=== PATIENT | male | born 1965 | race Native Hawaiian/Other Pacific Islander ===

== ENCOUNTER 2024-11-25 12:56 | Emergency (ER) | payer OTHER, SELFPAY ==
[2024-11-25] VITALS (11 sets, daily range): BP systolic 138–173; BP diastolic 89–117; PULSE 70–88; RESP 9–25; TEMP 35.7; O2SAT 97–98; BMI 28.2
[2024-11-25] MEDS: ASPIRIN 81 MG TAB.CHEW 324 MG PO (13:11)
--- NOTE | 2024-11-25 13:12 | CRLHL7_ITS ---
For Patients: As a result of the Century Cures Act, medical imaging exams and procedure reports are released immediately into your electronic medical record. You may view this report before your referring provider. If you have questions, please contact your health care provider. INDICATION: Chest pain. TECHNIQUE: Chest one-view. FINDINGS: The heart is normal in size. The depth of inspiration not optimal. The lungs are clear. The pulmonary vasculature and pleural surfaces appear normal. The bony thorax appears intact. IMPRESSION: Negative study. Dictated by Ronnie Stokes MD @ 11/25/2024 2:16:42 PM (Electronically Signed)
[2024-11-25] MEDS: NITROGLYCERIN 0.4 MG TAB.SUBL SUBLINGUAL (13:15)
--- NOTE | 2024-11-25 13:15 | ED_ITS ---
HPI - General Adult General Date Seen: 11/25/24 Chief complaint: Chest Pain Stated complaint: chest and back pain Time Seen by Provider: 11/25/24 13:04 History of Present Illness HPI narrative: Patient is a 59-year-old who denies any prior medical history. He says when he woke up this morning at 5:00 a.m. or so he had some discomfort in his chest which was brief and went away he went back to sleep and then woke up at around 8:00 a.m. and noted some tightness in his back at that time. This again went away. A couple of hours ago he says he developed tightness in his back again and this has persisted. He now has tightness in his chest and back which is mo derate to severe. He has had some associated nausea but no vomiting. No significant shortness of breath. No history of prior similar symptoms. He denies any medical history, no medications, denies tobacco or alcohol use. He drove himself initially to Urgent Care but says it was packed so he drove himself here. He says his family is all out of town. Related Data Allergies Allergy/AdvReac Type Severity Reaction Status Date / Time No Known Drug Allergies Allergy Verified 11/25/24 13:08 Review of Systems Status of ROS: Reports: 10 or more systems reviewed and unremarkable except as noted in History and below Exam Narrative: Exam Narrative: Vital signs reviewed In general, alert, nontoxic mid age male, he looks somewhat uncomfortable but he is conversant, breathing easily. Head: Normocephalic, atraumatic. Eyes: Sclera clear. Pupils equal and reactive. ENT: Mucous membranes moist. Neck: Supple without adenopathy. Heart: Regular rate and rhythm without murmur. Lungs: Clear. No increased work of breathing, crackles or wheezes. Abdomen: Soft, nontender to palpation. Extremities: Well perfused, pulses intact. No significant edema. Neurologic: Alert, conversant. Speech fluent, face symmetric. Moves all extremities equally. Skin: Warm, dry well perfused. Affect: Normal. Const: Vital Signs, click to edit/add: Vital Signs - 24 hr 11/25/24 13:03 11/25/24 13:11 Temperature 96.2 F L Pulse Rate [Pulse Oximeter] 80 Respiratory Rate 18 Blood Pressure [Le ft Upper Arm] 173/96 H Pulse Oximetry 97 98 Oxygen Delivery Me thod Room Air Course Course ED Course: On arrival he was placed on the monitor, an EKG was done which by my review shows ST-elevation greatest in leads V2 3 and 4, he also has elevation in leads 1 V5 and V6 with some reciprocal depression in leads 3 and AVF. No prior EKGs available for comparison. Cardiology paged at 1:10, page returned 1:17, accepted and air transport arranged 1:22. Sublingual nitro, nitro drip, heparin bolus, ticagrelor, aspirin ordered. Case reviewed with Cardiology as discussed, accepted in transfer as a level 1 STEMI. Portable chest x-ray shows possibly some mild vascular congestion, normal mediastinum. Radiology read pending. Labs all pending. Critical care 30 minutes Labs remain pending at the time of his discharge from the ER aside from point of care troponin which is 0.07. Radiology read remains pending of the chest x-ray. He had 2 mg of IV morphine, nitro drip was initiated, he did not have significant change in his symptoms with that but apparently the tubing was blocked so he was not getting that medication while he was here. Therefore, will let the air medics titrate that as needed EN route. Blood pressure was improved to systolic of 138 with sublingual nitro. Did not have substantial change in his symptoms with sublingual nitro and 2 mg of morphine. Vital Signs Vital signs: Initial Vital Signs Temperature 96.2 F L 11/25/24 13:03 Temperature Source Temporal Artery Scan 11/25/24 13:03 Pulse Rate 80 11/25/24 13:03 Respiratory Rate 18 11/25/24 13:03 Blood Pressure 173/96 H 11/25/24 13:03 Blood Pressure Mean 121 H 11/25/24 13:03 Pulse Oximetry 97 11/25/24 13:03 Oxygen Delivery Method Room Air 11/25/24 13:03 Vital Signs Temperature 96.2 F L 11/25/24 13:03 Pulse Rate 80 11/25/24 13:03 Respiratory Rate 18 11/25/24 13:03 Blood Pressure 173/96 H 11/25/24 13:03 Pulse Oximetry 97 11/25/24 13:03 Oxygen Delivery Method Room Air 11/25/24 13:03 Temperature 96.2 F L 11/25/24 13:03 Pulse Rate 80 11/25/24 13:03 Respiratory Rate 18 11/25/24 13:03 Blood Pressure 173/96 H 11/25/24 13:03 Pulse Oximetry 98 11/25/24 13:11 Oxygen Delivery Method Room Air 11/25/24 13:03 Medications Administered Medications: Generic Name Dose Route Start Last Admin Trade Name Freq PRN Reason Stop Dose Admin Sodium Chloride 1,000 mls @ 1,000 mls/hr 11/25/24 13:15 11/25/24 13:34 0.9 % Sodium Chloride 1000 Ml IV 11/25/24 14:14 1,000 mls/hr .Q1H GEMMA Administration Heparin Sodium/Dextrose 25,000 unit in 500 mls @ 0 mls/hr 11/25/24 13:15 11/25/24 13:31 Heparin IV 1,000 unit/hr .Q0M GEMMA 20 mls/hr Protocol Administration Per Protocol Nitroglycerin/Dextrose 25,000 mcg in 250 mls @ 3 mls/hr 11/25/24 13:13 11/25/24 13:29 Nitroglycerin/Dextrose IVPB 5 mcg/min .TITRATE PRN 3 mls/hr Myocardial infarction Administration Protocol 5 MCG/MIN Ticagrelor 180 mg 11/25/24 13:23 11/25/24 13:27 Ticagrelor 90 Mg Tablet PO 11/25/24 13:24 180 mg ONCE ONE Administration Discontinued Medications Generic Name Dose Route Start Last Admin Trade Name Freq PRN Reason Stop Dose Admin Aspirin 324 mg 11/25/24 13:12 11/25/24 13:11 Aspirin 81 Mg Tab.Chew PO 11/25/24 13:13 324 mg ONCE ONE Administration Heparin Sodium (Porcine) 4,000 unit 11/25/24 13:12 11/25/24 13:20 Heparin 5,000 Unit/0.5 Ml Inj IVP 11/25/24 13:13 4,000 unit ONCE ONE Administration Morphine Sulfate 2 mg 11/25/24 13:13 11/25/24 13:23 Morphine 2 Mg/Ml Inj IVP 11/25/24 13:14 2 mg ONCE ONE Administration Discharge Plan Discharge Clinical Impression: ST elevation myocardial infarction (STEMI) Patient Disposition: [facility] Condition: Stable Stand Alone Forms: MyHealth Info Instructions
[2024-11-25] MEDS: HEPARIN 5,000 UNIT/0.5 ML INJ 4000 UNIT IVP (13:20)
[2024-11-25] MEDS: MORPHINE 2 MG/ML inj IVP (13:23)
[2024-11-25] MEDS: TICAGRELOR 90 MG TABLET 180 MG PO (13:27)
[2024-11-25] MEDS: NITROGLYCERIN/DEXTROSE 25,000 MCG/250 ML BOTTLE 3 MCG IVPB (13:29)
[2024-11-25 13:30] LABS: Basophils Absolute Auto 0.02 K/uL (0.00-0.30); Basophils Percent Auto 0.2 % (0.0-3.0); Eosinophils Absolute Auto 0.05 K/uL (0.00-0.50); Eosinophils Percent Auto 0.5 % (0.0-7.0); Hematocrit 45.5 % (37.0-53.0); Hemoglobin* 15.7 gm/dL (13.5-17.5); Immature Granulocytes Abs Auto 0.04 K/uL (0.00-0.30); Immature Granulocytes Pct Auto 0.4 %; Lymphocytes Absolute Auto 2.17 K/uL (0.90-2.90); Lymphocytes Percent Auto 20.7 % (20-44); Mean Corpuscular HGB Conc 35 gm/dL (32-36); Mean Corpuscular Hemoglobin 32 pg (26-34); Mean Corpuscular Volume 92 fL (80-100); Monocytes Percent Auto 3.6 % (0.0-11.0); Neutrophils Percent Auto 74.6 % (42.0-72.0); Platelet Count* 248 K/uL (140-440); RDW Coefficient of Variation % 12.3 % (11.5-15.5); Red Blood Count 4.96 m/uL (4.30-5.90); White Blood Count* 10.49 K/uL (4.50-11.00)
[2024-11-25] MEDS: HEPARIN 25,000 UNIT/500 ML BAG 20 UNIT IV (13:31)
[2024-11-25] MEDS: 0.9 % SODIUM CHLORIDE 1000 ml 1,000 ML IV (13:34)
[2024-11-25 13:55] LABS: Troponin, Point-of-Care* 0.07 ng/ml (0.01-0.04)
[2024-11-25 13:56] LABS: Chloride* 106 mmol/L (96-114); Potassium* 3.6 mmol/L (3.6-5.1); Sodium* 140 mmol/L (135-149)
[2024-11-25 13:57] LABS: Slide Review Reflex No
[2024-11-25 13:59] LABS: Blood Urea Nitrogen* 18 mg/dL (7-30); Creatinine* 1.3 mg/dL (0.5-1.5); Est. Creatinine Clearance* 55.79; Estimated Glomerular Filt Rate 63 ml/min
[2024-11-25 14:00] LABS: Anion Gap 11 mEq/L (7-15); Calcium* 9.8 mg/dL (8.4-10.6); Carbon Dioxide* 23 mmol/L (20-32); Glucose* 166 mg/dL (60-115)
[2024-11-25 14:09] LABS: NT Pro B Type NatriureticPept* 27 pg/mL (See Note)
[2024-11-25 14:10] LABS: Partial Thromboplastin Time* 27 Seconds (23-33)
[2024-11-25 14:12] LABS: D Dimer Quantitative* 0.33 ug/ml (0.00-0.50)
== END 2024-11-25 13:35 | disposition short-term general hospital (02) ==
LOC: ED 13:39
PROVIDERS: Family Medicine; Emergency Provider Emergency Medicine
DX: I21.3 ST elevation (STEMI) myocardial infarction of unspecified site (principal); R11.0 Nausea
CPT/HCPCS: 36415; 71045; 80048; 83880; 84484; 85025; 85379; 85610; 85730; 93005; 94761; 99284; 99291; A9270; J1644; J2270; J7030

== ENCOUNTER 2025-06-05 14:21 | Outpatient (CLI) | payer OTHER, SELFPAY | END 2025-06-05 14:22 | disposition home or self-care (01) | LOC: AMB 06-11 14:50 | PROVIDERS: Visit Provider Student in an Organized Health Care Education/Training Program | DX: R07.89 Other chest pain (principal) | CPT/HCPCS: A0425; A0427 ==

== ENCOUNTER 2025-06-05 15:01 | Emergency (ER) | payer OTHER, SELFPAY ==
--- OUTSIDE RECORDS SUMMARY | 2025-06-05 15:03 | XMS_ITS | Clinical Summary ---
Author Organization [facility] Address [address] [place] [address] Care Team Providers Care Electric Organ Assembler And Checker Name Role Phone Gavino Sanchez MD Primary Care P maricruzder Allergies No known active allergies Medications MedicationSigDispense QuantityRefillsLast FilledStart DateEnd DateStatus acetaminophen 325 mg tablet Indications:Back pain, unspecified back location, unspecified back pain laterality, unspecified chronicityTake 1-2 Tablets (325-650 mg) by mouth every 4 hours if needed for Pain or Temp>101.5F (38.6C). Max acetaminophen dose: 4000mg in 24 hrs.5Active aspirin chewable 81 mg tablet Indications:STEMI involving left anterior descending coronary artery (HC)Take 1 Tablet (81 mg) by mouth or nasogastric tube once daily.5Active metoprolol succinate 50 mg sustained-release tablet Indications:STEMI involving left anterior descending coronary artery (HC)Take 1 Tablet (50 mg) by mouth once daily. 90 Tablet 11:17 AM CDT5Active nitroglycerin 0.4 mg sublingual tablet Indications:STEMI involving left anterior descending coronary artery (HC)Place 1 Tablet (0.4 mg) under the tongue every 5 minutes if needed for Chest pain 1st choice (Hold if SBP less than 90 mmHg). Up to 3 tablets in 15 minutes. 30 Tablet 11:17 AM CDT5Active rosuvastatin 40 mg tablet Indications:STEMI involving left anterior descending coronary artery (HC)Take 1 Tablet (40 mg) by mouth at bedtime. 90 Tablet 11:17 AM CDT5Active ticagrelor 90 mg tablet Indications:STEMI involving left anterior descending coronary artery (HC)Take 1 Tablet (90 mg) by mouth two times daily. 180 Tablet 11:17 AM CDT5Active valsartan 80 mg tablet Indications:STEMI involving left anterior descending coronary artery (HC)Take 1 Tablet (80 mg) by mouth two times daily. 180 Tablet 11:17 AM CDT5Active Active Problems ProblemNoted DateDiagnosed DateHyperlipidemia LDL goal <55001/03/2025oronary artery disease involving [place] coronary artery of [place] heart without angina krypltzr35/31/2025Primary wygiroppkmxl20/31/2025ST elevation myocardial infarction involving left anterior descending (LAD) coronary cqpolp8711/25/2024 Routine adult health zqhunlzmcmv45/22/2017 Overview (05/27/2017): Colonoscopy 05/2017 normal repeat in 10 years Resolved Problems ProblemNoted DateDiagnosed DateResolved DateHyperlipidemia LDL goal <70 5001/03/2025 Encounters DateTypeDepartmentCare UdiqPtzvswnecxg94/31/2025Nurse Triage [facility] [address] [place] [address] Gavino Sanchez MD Chest Pain06/05/2025Telephone [facility] [address] [place] [address] Gavino Sanchez MD Error-please disregard (error)03/29/2025Telephone [facility] [address] [place] [address] Research, if Research (SSCORE 3-month follow up)03/28/2025Telephone [facility] [address] [place] [address] Research, if Research (SSCORE attempt 3-month follow up)03/27/2025Telephone [facility] [place] [address] [place] [phone] Research, if Research (SSCORE attempt 3-month follow up)03/11/2025 2:[address] [address] [place] [address] Candice Day PA CV General Cardiology Est (2mo f/u Echo states he is bruising a lot easier. No other concerns.)03/11/2025 8:17 AM CDT - 03/11/2025 11:59 PM CDT Hospital Encounter [facility] [address] [place] [address] 03/11/20259382Evfltx74/03/2025 8:27 AM CDT - 03/08/2025 11:59 PM CDTHospital Encounter [facility] [address] [place] [address] 03/08/20255132Dqcvxq04/01/2025 7:00 AM CDT - 03/06/2025 11:59 PM CDTHospital Encounter [facility] [address] [place] [address] 03/06/2025Travelfrom Last 3 Months Immunizations ImmunizationAdministration DatesNext DueAMB Influenza, IIV3 (Age >=3 years)(Flu Clinic Only)03/27/2012,04/16/2011,05/07/2008MB Influenza, IIV4 PF (=>6 mos Flulaval,Fluzone Fluarix)(Flu Clinic Only)03/20/2020,05/04/2019,04/16/2017, 03/20/2016,03/22/2014COVID-19 vaccine (Pfizer-BioNTech 30mcg/0.3mL) 12YO+ BIVALENT PF, MDV12COVID-19 vaccine (Pfizer-BioNTech 30mcg/0.3mL) 12YO+ LAVERNE-SUCROSE PF, MDV2COVID-19 vaccine (ubigrate 30mcg/0.3mL) PF, MDV11/29/2020,11/08/2020Influenza, CCIIV3 (Age >=6 MO) (Egg Free)05/04/2024 Influenza, IIV3 (Age 6-35 mos)04/16/2011,05/14/2009Influenza, IIV3 (Age >=3 years)04/09/2013,03/27/2012,05/14/2009,05/07/2008,04/05/2007,05/09/2006 Influenza, QHD90706/28/2021,02/05/2021,03/20/2016,03/26/2015,03/22/2014 Influenza,CCIIV4 PRESERV FREE05/13/2023Tdap107/03/2015Zoster (Zostavax-ZVL, live) 05/03/2016 Social History Tobacco UseTypesPacks/DayYears UsedDateSmoking Tobacco: NeverSmokeless Tobacco: Never Tobacco Cessation:Counseling Given: Yes Alcohol UseStandard Drinks/WeekCommentsNo0 (1 standard drink = 0.6 oz pure alcohol)PHQ-2AnswerDate RecordedPHQ-2 TOTAL [id number] Connections AnswerDate RecordedDo you often feel lonely or isolated from those around you?0 11/29/2024Financial Resource StrainAnswerDate RecordedDifficulty of Paying Living Odgvoanb670/26/2025Difficulty of Paying Living ExpensesNot on file 11/29/2024Food InsecurityAnswerDate RecordedDo you worry your food will run out before you are able to buy more?Transportation NeedsAnswerDate RecordedDoes lack of transportation keep you from medical appointments?1 11/29/2024Does lack of transportation keep you from work, meetings or getting things that you need?Housing StabilityAnswerDate RecordedWhat is your housing situation today?Interpersonal SafetyAnswerDate RecordedAre you being hit, kicked, pushed or yelled at (see row info)?No11/26/2024 Interpersonal Safety Abuse 12 - 18Not on file11/26/2024Interpersonal Safety Ambulatory VulnerabilityNot on file11/26/2024UtilitiesAnswerDate RecordedDo you have trouble paying for utilities (for example, heat, electricity, water, phone)?Sex and Gender InformationValueDate RecordedSex Assigned at BirthNot on fileLegal IitWihh4806/19/2012 6:33 AM CSTGender IdentityNot on file Sexual OrientationNot on file Last Filed Vital Signs Vital SignReadingTime TakenCommentsBlood Kjkrxrqu646/7003/11/2025 2:18 PM CDT Hclep334103/11/2025 2:18 PM DSJNgwsipnxmat44.3 ??C (99.1 ??F)11/27/2024 8:17 AM CDTRespiratory Sdeg475612/13/2024 1:00 PM CDTOxygen Tcuixhcenx138%03/11/2025 2:18 PM CDTInhaled Oxygen Concentration--Zcjqhf91.7 kg (184 lb 9.6 oz)03/11/2025 2:18 PM OAPLpomkj557.2 cm (5' 7.01)03/11/2025 2:18 PM CDTBody Mass Index28.91 03/11/2025 2:18 PM CDT Plan of Treatment Health MaintenanceDue DateLast DoneCommentsHIV for age 15-6504/29/1978Hepatitis C screening for age 18-7904/29/1981Pneumococcal series for age 50+ (1 of 2 - PCV)1982RSV vaccine for adults or (1 - Risk 50-74 years 1-dose series)2013Zoster (shingles) series for age 50+ (2 of 3)06/28/2016 05/03/2016COVID-19 vaccine series ( - 2024- season), 07/27/2021, 11/29/2020, Additional history existsInfluenza Vaccine (#1) , 05/13/2023, 04/28/2022, Additional history existsBMI (ht and wt on same day) for age 18+, 01/18/2025, 01/03/2025, Additional history existsDepression screening for age 12+, 10/07/2020, 08/29/2018, Additional history existsTetanus gnvtoln7805/03/2026 05/03/2016Colonoscopy through age 75, 05/27/2017, 05/27/2017 Lipids for age 45-750, 11/26/2024Hepatitis B series for 19+ Aged OutNo longer eligible based on patient's age to complete this topic Procedures Procedure NamePriorityDate/TimeAssociated DiagnosisCommentsSCAN-CARDIAC CXHVDWYXUMLUBJ62/06/2025 8:21 AM CDTSCAN-CARDIAC RXVMSFYWCLWHEK64/03/2025 8:18 AM CDTSCAN-CARDIAC LOCKMYAEXMJNOM88/01/2025 8:20 AM CDTLIPID PANEL W REFLEX MEASURED VXENgxzwac29/26/2025 2:[address] elevation myocardial infarction involving left anterior descending (LAD) coronary artery (HC) Hyperlipidemia LDL goal <55 Coronary artery disease involving [place] coronary artery of [place] heart without angina pectoris Primary hypertension VVPZFPWUGCA78/22/2017 11:12 AM 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 Narrative Authorizing ProviderResult TypeResult StatusScannerOTHERFinal Result * LIPID PANEL W REFLEX MEASURED LDL (03/01/2025 2:38 PM CDT)ComponentValueRef RangeTest MethodAnalysis TimePerformed AtPathologist SignatureCHOLESTEROL, TOTAL98<200 mg/dL03/02/2025 4:15 AM CDTQUEST NXKLCEHVMRCIKHMNTNHNNKSQ239<150 mg/dL03/02/2025 4:15 AM CDTQUEST DIAGNOSTICSHDL CXHZQFQFPSX42> OR = 40 mg/dL 03/02/2025 4:15 AM CDTQUEST DIAGNOSTICSNON HDL EYPTDRHHFNW21<130 mg/dL (calc) 03/02/2025 4:15 AM CDTQUEST DIAGNOSTICSComment: For patients with diabetes plus 1 major ASCVD risk factor, treating to a non-HDL-C goal of <100 mg/dL (LDL-C of <70 mg/dL) is considered a therapeutic option. CHOL/HDLC RATIO2.2<5.0 (calc)03/02/2025 4:15 AM CDTQUEST DIAGNOSTICS LDL-LVHULABEGBC58qc/dL (calc)03/02/2025 4:15 AM CDTQUEST DIAGNOSTICSComment: Reference range: <100 Desirable range <100 mg/dL for primary prevention; <70 mg/dL for patients with CHD or diabetic patients with > or = 2 CHD risk factors. LDL-C is now calculated using the Albina calculation, which is a validated novel method providing better accuracy than the Friedewald equation in the estimation of LDL-C. Issac EDWARDS et al. CELENA. 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)Specimen (Source)Anatomical Location / LateralityCollection Method / VolumeCollection TimeReceived Time05/27/2017 11:12 AM TEXTILE SLITTING MACHINE OPERATOR Narrative Transcriptions Issac Abarca MD - 05/27/2017 12:17 PM CST Patient Name: Alfredo Steve Procedure Date: 05/27/2017 Gender: Male Date of : 1965 Admit Type: Outpatient Procedure: Colonoscopy Proceduralist: Issac Abarca MD , Rosalba Adler (Nurse) Indications/Pre-Op Diagnosis: Screening for colorectal malignant neoplasm, This is the patient's first colonoscopy Medications: Fentanyl 100 micrograms IV, Midazolam 4 mgIV, The level of sedation administered wasmoderate Procedure Description: The patient had risks, benefits and alternatives explained to andgave informed consent. The patient had a stable cardiopulmonary status and judged an adequate candidate for conscious sedation. The PCF-[id number] [id number] was passed through the anus and advanced tothe cecum, identified by appendiceal orifice and ileocecal valve. The colonoscopy was performed without difficulty. The patient toleratedthe procedure well. The quality of the bowel preparation was good. The ileocecal valve, appendiceal orifice, and rectum were photographed. Complications: No immediate complications. Estimated Blood Loss & Specimen: Estimated blood loss: none. Specimen collected - None Findings: The perianal and digital rectal examinations were normal. The entire examined colon appeared normal on direct and retroflexion views. Impressions/Post-Op Diagnosis: - The entire examined colon is normal on direct and retroflexionviews. - No specimens collected. Recommendation: - Patient has a contact number available for emergencies. The signsand symptoms of potential delayed complications were discussed with the patient. Return to normal activities tomorrow. Written discharge instructions were provided to the patient. - Resume previous diet. - Continue present medications. - Repeat colonoscopy in 10 years for screening purposes. Moderate Sedation: Moderate (conscious) sedation was administered by the endoscopy nurse and supervised by the endoscopist. The following parameters were monitored: oxygen saturation, heart rate, respiratory rate, blood pressure, adequacy of pulmonary ventilation and reponse to care. Please refer to the patien'ts medical record flowsheets and nursing notes for moderate sedation details. Total physician intraservice time was 15 minutes. Issac Abarca MD 05/27/2017 12:17:28 PM This report has been signed electronically. Note Initiated On: 05/27/2017 11:12 AM Procedure Code(s): --- Professional --- 52662, Colonoscopy, flexible; diagnostic, including collection of specimen(s) bybrushing or washing, when performed (separateprocedure) Diagnosis Code(s): --- Professional --- Z12.11, Encounter for screening formalignant neoplasm of colon CPT copyright 2016 [employer]. All rights reserved. The codes documented in this report are preliminary and upon communication coordinator reviewmay be revised to meet current compliance requirements. Scope In: 11:53:59 AM Scope Withdrawal Time 0 hours 8 minutes 52 seconds Scope Out: 12:06:31 PM Authorizing ProviderResult TypeResult StatusMarjina Abarca MDPROCEDURE ORD Final Result from Last 3 Months or Most Recently Relevant to Health Maintenance Insurance Advance Directives * Full Code (Latest Code Status on File) Date ActivatedDate InactivatedComments11/25/2024 3:36 PM11/27/2024 2:25 PMQuestion AnswerCommentsCode Status Discussion:* Unable to Assess Preferences, Provider to review later Care Teams Team MemberRelationshipSpecialtyStart DateEnd Date Gavino Sanchez MD [address] [place] [address] PCP - GeneralFamily Practice11/29/24
[2025-06-05 15:17] VITALS: BP 139/76; PULSE 67; RESP 16; TEMP 37.1; O2SAT 99; BMI 27.4
--- NOTE | 2025-06-05 15:24 | CRLHL7_ITS ---
For Patients: As a result of the Century Cures Act, medical imaging exams and procedure reports are released immediately into your electronic medical record. You may view this report before your referring provider. If you have questions, please contact your health care provider. Indication: Chest pain Technique: Chest 2 views Comparison: Chest x-ray 11/25/2024 Findings/Impression: Cardiovascular and mediastinum: Heart size and vasculature are normal in caliber and appearance. Mediastinum is within normal limits. Lungs and pleural spaces: Lungs are clear. No sign of infiltrate or mass. No sign of pleural effusion. No pneumothorax. Bones and soft tissues: No significant findings. Dictated by Bradly Villagran MD @ 06/05/2025 4:52:01 PM (Electronically Signed)
--- NOTE | 2025-06-05 15:32 | ED.CHESTPAIN ---
HPI - Chest Pain General Date Seen: 06/05/25 <Edison Oswald DO - Last Filed: 06/08/25 11:44> Chief Complaint: Chest Pain <Edison Oswald DO - Last Filed: 06/08/25 11:44> Stated Complaint: Chest pain <Edison Oswald DO - Last Filed: 06/08/25 11:44> Time Seen by Provider: 06/05/25 15:04 <Edison Oswald DO - Last Filed: 06/08/25 11:44> Source: patient <Edison Oswald DO - Last Filed: 06/08/25 11:44> Mode of arrival: EMS <Edison Oswald DO - Last Filed: 06/08/25 11:44> Limitations: no limitations <Edison Oswald DO - Last Filed: 06/08/25 11:44> History of Present Illness HPI narrative: Patient is 60-year-old male with a history of coronary artery disease the previous stent placed in November of 2024 presenting to the emergency department for chest pain. He states he 1st had some chest pain last night around 20:00. State it felt like a sharp sensation in his mid chest region. He went to bed without issue. Woke up and was not having much symptoms. Was shoveling snow today and said he was doing well. He states after officially is no went in the house they went downstairs to clean. While he was cleaning he started having some chest pain again. This chest pain was more in the lower sternal region. It did not radiate anywhere. Pain was not improving so he went to go taking Nitrol he states that resolved pain almost immediately. He now states he is a vague pressure sensation in the same area that does not radiate. He states previously when he has heart attack he was having severe chest and back pain along with diaphoresis. He states this felt nothing like that. Is not having any associated shortness of breath. Denies any recent illnesses. Denies fevers, chills, headache, lightheadedness, dizziness, weakness, numbness, abdominal pain. No other concerns noted at this time. States he is already taking 4 baby aspirin. <Edison Oswald - Last Filed: 06/08/25 11:44> Related Data Home Medications: Home Medications ?Medication ?Instructions ?Recorded ?Confirmed aspirin 81 mg capsule 81 mg PO DAILY 06/05/25 06/05/25 metoprolol succinate 50 mg 50 mg PO DAILY 06/05/25 06/05/25 tablet,extended release 24 hr rosuvastatin 40 mg tablet 40 mg PO QPM 06/05/25 06/05/25 ticagrelor 90 mg tablet 90 mg PO BID 06/05/25 06/05/25 valsartan 80 mg tablet 80 mg PO BID 06/05/25 06/05/25 <Edison Oswald DO - Last Filed: 06/08/25 11:44> Allergies/Adverse Reactions: Allergies Allergy/AdvReac Type Severity Reaction Status Date / Time No Known Drug Allergies Allergy Verified 06/05/25 15:22 <Edison Oswald DO - Last Filed: 06/08/25 11:44> Review of Systems Status of ROS Reports: 10 or more systems reviewed and unremarkable except as noted in History and below <Edison Oswald DO - Last Filed: 06/08/25 11:44> [facility] Social History: Social History Smoking Status: Never smoker Do you use any of these nicotine containing products: None How often do you have a drink containing alcohol: never AUDIT-C Alcohol total score: 0 Non-prescribed substance use: denies use <Edison Oswald DO - Last Filed: 06/08/25 11:44> Exam Narrative Exam Narrative: Const: Well-nourished, Well-developed, in mild distress Eyes: PERRL, no conjunctival injection, and symmetrical lids HENT: Atraumatic external nose and ears. Moist mucous membranes. Neck: Symmetric, trachea midline, No thyromegaly. CVS: RRR, No murmurs or gallops. Peripheral pulses 2+ and equal in all extremities RESP: Unlabored respiratory effort. Clear to auscultation bilaterally. GI: Nontender/Nondistended, No rebound or guarding. MSK:Extremities w/o deformity, Normal Active ROM Skin: Warm, Dry. No rashes or lesions. Neuro: Normal Muscle tone, No focal neurological deficits. Psych: Awake, Alert, & Oriented x3. Appropriate mood and affect. <Edison Oswald DO - Last Filed: 06/08/25 11:44> Const Vital Signs, click to edit/add: Vital Signs - 24 hr 06/05/25 15:17 06/05/25 17:45 Temperature 98.8 F 98.7 F Pulse Rate [Pulse Oximeter] 67 61 Respiratory Rate 16 18 Blood Pressure [Right Upper Arm] 139/76 111/70 Pulse Oximetry 99 98 Oxygen Delivery Method Room Air Room Air <Edison Oswald DO - Last Filed: 06/08/25 11:44> Vital Signs - 24 hr 06/05/25 15:17 06/05/25 17:45 Temperature 98.8 F 98.7 F Pulse Rate [Pulse Oximeter] 67 61 Respiratory Rate 16 18 Blood Pressure [Right Upper Arm] 139/76 111/70 Pulse Oximetry 99 98 Oxygen Delivery Method Room Air Room Air <Marcel Wong MD - Last Filed: 06/05/25 18:15> Course Vital Signs Vital signs: Initial Vital Signs Temperature 98.8 F 06/05/25 15:17 Temperature Source Temporal Artery Scan 06/05/25 15:17 Pulse Rate 67 06/05/25 15:17 Pulse Rhythm Regular 06/05/25 15:17 Pulse Strength 3+ Normal 06/05/25 15:17 Respiratory Rate 16 06/05/25 15:17 Blood Pressure 139/76 06/05/25 15:17 Blood Pressure Mean 97 06/05/25 15:17 Blood Pressure Position Sitting 06/05/25 15:17 Pulse Oximetry 99 06/05/25 15:17 Oxygen Delivery Method Room Air 06/05/25 15:17 Vital Signs Temperature 98.8 F 06/05/25 15:17 Pulse Rate 67 06/05/25 15:17 Respiratory Rate 16 06/05/25 15:17 Blood Pressure 139/76 06/05/25 15:17 Pulse Oximetry 99 06/05/25 15:17 Oxygen Delivery Method Room Air 06/05/25 15:17 Temperature 98.7 F 06/05/25 17:45 Pulse Rate 61 06/05/25 17:45 Respiratory Rate 18 06/05/25 17:45 Blood Pressure 111/70 06/05/25 17:45 Pulse Oximetry 98 06/05/25 17:45 Oxygen Delivery Method Room Air 06/05/25 17:45 <Edison Oswald DO - Last Filed: 06/08/25 11:44> Initial Vital Signs Temperature 98.8 F 06/05/25 15:17 Temperature Source Temporal Artery Scan 06/05/25 15:17 Pulse Rate 67 06/05/25 15:17 Pulse Rhythm Regular 06/05/25 15:17 Pulse Strength 3+ Normal 06/05/25 15:17 Respiratory Rate 16 06/05/25 15:17 Blood Pressure 139/76 06/05/25 15:17 Blood Pressure Mean 97 06/05/25 15:17 Blood Pressure Position Sitting 06/05/25 15:17 Pulse Oximetry 99 06/05/25 15:17 Oxygen Delivery Method Room Air 06/05/25 15:17 Vital Signs Temperature 98.8 F 06/05/25 15:17 Pulse Rate 67 06/05/25 15:17 Respiratory Rate 16 06/05/25 15:17 Blood Pressure 139/76 06/05/25 15:17 Pulse Oximetry 99 06/05/25 15:17 Oxygen Delivery Method Room Air 06/05/25 15:17 Temperature 98.7 F 06/05/25 17:45 Pulse Rate 61 06/05/25 17:45 Respiratory Rate 18 06/05/25 17:45 Blood Pressure 111/70 06/05/25 17:45 Pulse Oximetry 98 06/05/25 17:45 Oxygen Delivery Method Room Air 06/05/25 17:45 <Marcel Wong MD - Last Filed: 06/05/25 18:15> MDM - Chest Pain MDM Narrative Medical decision making narrative: Patient is a 60-year-old male presenting for chest pain. The differential diagnosis of chest pain is broad and includes common etiologies such as musculoskeletal strain, GERD, pneumonia, etc. More serious etiologies considered include PE, coronary artery disease, pneumothorax, aortic dissection, aortic aneurysm. Will do EKG and troponins to look for signs of coronary artery or other cardiac abnormalities. Will do D-dimer to look for signs of a blood clot. Chest x-ray ordered for for signs of pneumonia pneumothorax. Is otherwise stable my concern for dissection or ruptured aortic aneurysm is low. Pain is not reproducible on palpation and this does not seem to be musculoskeletal in nature. The symptoms are improving after the nitro does raise my suspicion for coronary artery disease although could also be an esophageal spasm. Lab work returned showing no concerning abnormalities. D-dimer still pending. Viral swabs are also still pending. Initial troponin shows no concerning abnormalities. Will repeat troponin. EKG interpreted by myself shows no concerning findings. Patient will be signed out to my colleague. Expected disposition is discharge at this time <Eidson Oswald DO - Last Filed: 06/08/25 11:44> Patient is a 60-year-old male presenting for chest pain. The differential diagnosis of chest pain is broad and includes common etiologies such as musculoskeletal strain, GERD, pneumonia, etc. More serious etiologies considered include PE, coronary artery disease, pneumothorax, aortic dissection, aortic aneurysm. Will do EKG and troponins to look for signs of coronary artery or other cardiac abnormalities. Will do D-dimer to look for signs of a blood clot. Chest x-ray ordered for for signs of pneumonia pneumothorax. Is otherwise stable my concern for dissection or ruptured aortic aneurysm is low. Pain is not reproducible on palpation and this does not seem to be musculoskeletal in nature. The symptoms are improving after the nitro does raise my suspicion for coronary artery disease although could also be an esophageal spasm. Lab work returned showing no concerning abnormalities. D-dimer still pending. Viral swabs are also still pending. Initial troponin shows no concerning abnormalities. Will repeat troponin. EKG interpreted by myself shows no concerning findings. Patient will be signed out to my colleague. Expected disposition is discharge at this time Repeat troponin along with chest x-ray and D-dimer all returned with reassuring results. I did visit the patient and discuss these results. He may be having some atypical chest pain unrelated to his heart as he states that this pain was quite different than what he had last summer when he needed an angiogram. He tells me that there was 1 artery that was 50% occluded and they did not place a stent in this artery. He may be having some exertional angina. The patient is taking appropriate medications including beta-tana and cholesterol meds. He is okay to be discharged home. I advised him to follow-up with his clinical counselor and if symptoms are recurrent he should return for re-evaluation. <Marcel Wong MD - Last Filed: 06/05/25 18:15> Lab Data Labs: Lab Results 06/05/25 06/05/25 06/05/25 Range/Units 15:24 15:33 15:37 WBC 5.48 (4.50-11.00) K/uL RBC 4.47 (4.30-5.90) m/uL Hgb 13.6 (13.5-17.5) gm/dL Hct 40.7 (37.0-53.0) % MCV 91 (80-100) fL MCH 30 (26-34) pg MCHC 33 (32-36) gm/dL RDW Coeff of Lacey 12.4 (11.5-15.5) % Plt Count 225 (140-440) K/uL Neut % (Auto) 64.5 (42.0-72.0) % Lymph % (Auto) 26.1 (20-44) % Clare % (Auto) 6.6 (0.0-11.0) % Eos % (Auto) 1.6 (0.0-7.0) % Baso % (Auto) 0.7 (0.0-3.0) % Neut # (Auto) 3.53 (1.7-7.0) K/uL Lymph # (Auto) 1.43 (0.90-2.90) K/uL Clare # (Auto) 0.40 (0.00-0.90) K/UL Eos # (Auto) 0.09 (0.00-0.50) K/uL Baso # (Auto) 0.04 (0.00-0.30) K/uL Abs Immat Gran (auto) 0.03 (0.00-0.30) K/uL Imm/Tot Granulo (auto) 0.5 % D-Dimer Quant (PE/DVT) 0.30 (0.00-0.50) ug/ml Sodium 134 L (135-149) mmol/L Potassium 4.3 (3.6-5.1) mmol/L Chloride 104 (96-114) mmol/L Carbon Dioxide 24 (20-32) mmol/L Anion Gap 6 L (7-15) mEq/L BUN 16 (7-30) mg/dL Creatinine 1.1 (0.5-1.5) mg/dL Estimated Creat Clear 65.10 Estimated GFR 76 ml/min Glucose 104 (60-115) mg/dL Calcium 9.5 (8.4-10.6) mg/dL Magnesium 2.1 (1.5-2.6) mg/dL POC Troponin I High Sensi 15.5 (2.9-28.0) pg/mL SARS-CoV-2 (PCR) Negative SARS-CoV-2 (Negative) Influenza Type A (PCR) Negative PCR FLU A (Negative) Influenza Type B (PCR) Negative PCR FLU B (Negative) RSV (PCR) Negative PCR RSV (Negative) 06/05/25 Range/Units 17:25 WBC (4.50-11.00) K/uL RBC (4.30-5.90) m/uL Hgb (13.5-17.5) gm/dL Hct (37.0-53.0) % MCV (80-100) fL MCH (26-34) pg MCHC (32-36) gm/dL RDW Coeff of Lacey (11.5-15.5) % Plt Count (140-440) K/uL Neut % (Auto) (42.0-72.0) % Lymph % (Auto) (20-44) % Clare % (Auto) (0.0-11.0) % Eos % (Auto) (0.0-7.0) % Baso % (Auto) (0.0-3.0) % Neut # (Auto) (1.7-7.0) K/uL Lymph # (Auto) (0.90-2.90) K/uL Clare # (Auto) (0.00-0.90) K/UL Eos # (Auto) (0.00-0.50) K/uL Baso # (Auto) (0.00-0.30) K/uL Abs Immat Gran (auto) (0.00-0.30) K/uL Imm/Tot Granulo (auto) % D-Dimer Quant (PE/DVT) (0.00-0.50) ug/ml Sodium (135-149) mmol/L Potassium (3.6-5.1) mmol/L Chloride (96-114) mmol/L Carbon Dioxide (20-32) mmol/L Anion Gap (7-15) mEq/L BUN (7-30) mg/dL Creatinine (0.5-1.5) mg/dL Estimated Creat Clear Estimated GFR ml/min Glucose (60-115) mg/dL Calcium (8.4-10.6) mg/dL Magnesium (1.5-2.6) mg/dL POC Troponin I High Sensi 16.2 (2.9-28.0) pg/mL SARS-CoV-2 (PCR) (Negative) Influenza Type A (PCR) (Negative) Influenza Type B (PCR) (Negative) RSV (PCR) (Negative) <Edison Oswald, DO - Last Filed: 06/08/25 11:44> Lab Results 06/05/25 06/05/25 06/05/25 Range/Units 15:24 15:33 15:37 WBC 5.48 (4.50-11.00) K/uL RBC 4.47 (4.30-5.90) m/uL Hgb 13.6 (13.5-17.5) gm/dL Hct 40.7 (37.0-53.0) % MCV 91 (80-100) fL MCH 30 (26-34) pg MCHC 33 (32-36) gm/dL RDW Coeff of Lacey 12.4 (11.5-15.5) % Plt Count 225 (140-440) K/uL Neut % (Auto) 64.5 (42.0-72.0) % Lymph % (Auto) 26.1 (20-44) % Clare % (Auto) 6.6 (0.0-11.0) % Eos % (Auto) 1.6 (0.0-7.0) % Baso % (Auto) 0.7 (0.0-3.0) % Neut # (Auto) 3.53 (1.7-7.0) K/uL Lymph # (Auto) 1.43 (0.90-2.90) K/uL Clare # (Auto) 0.40 (0.00-0.90) K/UL Eos # (Auto) 0.09 (0.00-0.50) K/uL Baso # (Auto) 0.04 (0.00-0.30) K/uL Abs Immat Gran (auto) 0.03 (0.00-0.30) K/uL Imm/Tot Granulo (auto) 0.5 % D-Dimer Quant (PE/DVT) 0.30 (0.00-0.50) ug/ml Sodium 134 L (135-149) mmol/L Potassium 4.3 (3.6-5.1) mmol/L Chloride 104 (96-114) mmol/L Carbon Dioxide 24 (20-32) mmol/L Anion Gap 6 L (7-15) mEq/L BUN 16 (7-30) mg/dL Creatinine 1.1 (0.5-1.5) mg/dL Estimated Creat Clear 65.10 Estimated GFR 76 ml/min Glucose 104 (60-115) mg/dL Calcium 9.5 (8.4-10.6) mg/dL Magnesium 2.1 (1.5-2.6) mg/dL POC Troponin I High Sensi 15.5 (2.9-28.0) pg/mL SARS-CoV-2 (PCR) Negative SARS-CoV-2 (Negative) Influenza Type A (PCR) Negative PCR FLU A (Negative) Influenza Type B (PCR) Negative PCR FLU B (Negative) RSV (PCR) Negative PCR RSV (Negative) 06/05/25 Range/Units 17:25 WBC (4.50-11.00) K/uL RBC (4.30-5.90) m/uL Hgb (13.5-17.5) gm/dL Hct (37.0-53.0) % MCV (80-100) fL MCH (26-34) pg MCHC (32-36) gm/dL RDW Coeff of Lacey (11.5-15.5) % Plt Count (140-440) K/uL Neut % (Auto) (42.0-72.0) % Lymph % (Auto) (20-44) % Clare % (Auto) (0.0-11.0) % Eos % (Auto) (0.0-7.0) % Baso % (Auto) (0.0-3.0) % Neut # (Auto) (1.7-7.0) K/uL Lymph # (Auto) (0.90-2.90) K/uL Clare # (Auto) (0.00-0.90) K/UL Eos # (Auto) (0.00-0.50) K/uL Baso # (Auto) (0.00-0.30) K/uL Abs Immat Gran (auto) (0.00-0.30) K/uL Imm/Tot Granulo (auto) % D-Dimer Quant (PE/DVT) (0.00-0.50) ug/ml Sodium (135-149) mmol/L Potassium (3.6-5.1) mmol/L Chloride (96-114) mmol/L Carbon Dioxide (20-32) mmol/L Anion Gap (7-15) mEq/L BUN (7-30) mg/dL Creatinine (0.5-1.5) mg/dL Estimated Creat Clear Estimated GFR ml/min Glucose (60-115) mg/dL Calcium (8.4-10.6) mg/dL Magnesium (1.5-2.6) mg/dL POC Troponin I High Sensi 16.2 (2.9-28.0) pg/mL SARS-CoV-2 (PCR) (Negative) Influenza Type A (PCR) (Negative) Influenza Type B (PCR) (Negative) RSV (PCR) (Negative) <Marcel Wong MD - Last Filed: 06/05/25 18:15> Imaging Data Chest x-ray: Radiologist's impression: Cardiovascular and mediastinum: Heart size and vasculature are normal in caliber and appearance. Mediastinum is within normal limits. Lungs and pleural spaces: Lungs are clear. No sign of infiltrate or mass. No sign of pleural effusion. No pneumothorax. Bones and soft tissues: No significant findings. <Marcel Wong MD - Last Filed: 06/05/25 18:15> ECG Data Attestation: I personally reviewed and interpreted this ECG as follows: <Edison Oswald DO - Last Filed: 06/08/25 11:44> Prior ECG tracings: available for review <Edison Oswald DO - Last Filed: 06/08/25 11:44> Interpretation: Normal sinus rhythm with a rate of 65 beats per minute, normal intervals, normal axis, no ST or T-wave abnormalities. Only EKG to compare to is a previous EKG that shows a STEMI <Edison Oswald DO - Last Filed: 06/08/25 11:44> Discharge Plan Discharge Clinical Impression: Atypical chest pain <Edison Oswald DO - Last Filed: 06/08/25 11:44> Patient Disposition: Home, Self-Care <Edison Oswald DO - Last Filed: 06/08/25 11:44> Condition: Improved <Edison Oswald DO - Last Filed: 06/08/25 11:44> Additional Instructions: Continue current plans. Activity as tolerated. Follow-up with cardiology clinic for ongoing evaluation and management. Return if symptoms are recurrent or worsening. <Edison Oswald DO - Last Filed: 06/08/25 11:44> Prescriptions: No Action metoprolol succinate 50 mg tablet extended release 24 hr 50 mg PO DAILY valsartan 80 mg tablet 80 mg PO BID rosuvastatin 40 mg tablet 40 mg PO QPM ticagrelor 90 mg tablet 90 mg PO BID aspirin 81 mg capsule 81 mg PO DAILY <DO Destin Santacruz Last Filed: 06/08/25 11:44> Follow Up/Referrals: Provider,Not a Local [Primary Care Provider, Family Practice] <DO Destin Santacruz Last Filed: 06/08/25 11:44> Stand Alone Forms: [facility] Info Instructions <DO Destin Santacruz Last Filed: 06/08/25 11:44>
[2025-06-05 15:52] LABS: Hematocrit* 40.7 % (37.0-53.0); Hemoglobin* 13.6 gm/dL (13.5-17.5); Immature Granulocytes Abs Auto 0.03 K/uL (0.00-0.30); Immature Granulocytes Pct Auto 0.5 %; Lymphocytes Absolute Auto 1.43 K/uL (0.90-2.90); Mean Corpuscular HGB Conc 33 gm/dL (32-36); Mean Corpuscular Hemoglobin 30 pg (26-34); Mean Corpuscular Volume 91 fL (80-100); RDW Coefficient of Variation % 12.4 % (11.5-15.5); Red Blood Count* 4.47 m/uL (4.30-5.90); White Blood Count* 5.48 K/uL (4.50-11.00)
[2025-06-05 15:55] LABS: Slide Review Reflex No
[2025-06-05 15:59] LABS: Chloride* 104 mmol/L (96-114); Potassium* 4.3 mmol/L (3.6-5.1); Sodium* 134 mmol/L (135-149)
[2025-06-05 16:02] LABS: Anion Gap 6 mEq/L (7-15); Blood Urea Nitrogen* 16 mg/dL (7-30); Calcium* 9.5 mg/dL (8.4-10.6); Carbon Dioxide* 24 mmol/L (20-32); Creatinine* 1.1 mg/dL (0.5-1.5); Est. Creatinine Clearance* 65.10; Estimated Glomerular Filt Rate 76 ml/min; Glucose* 104 mg/dL (60-115)
[2025-06-05 16:14] LABS: D Dimer Quantitative* 0.30 ug/ml (0.00-0.50)
[2025-06-05 16:24] LABS: PCR FLU A Negative PCR FLU A (Negative); PCR FLU B Negative PCR FLU B (Negative); PCR RSV Negative PCR RSV (Negative); SARS PCR* Negative SARS-CoV-2 (Negative)
[2025-06-05 17:45] VITALS: BP 111/70; PULSE 61; RESP 18; TEMP 37.1; O2SAT 98
== END 2025-06-05 18:30 | disposition home or self-care (01) ==
PROVIDERS: Student in an Organized Health Care Education/Training Program; Emergency Provider Emergency Medicine Emergency Medical Services
DX: R07.89 Other chest pain (principal)
CPT/HCPCS: 36415; 71046; 80048; 83735; 84484; 85025; 85379; 87631; 93005; 99284; 99285